=== PATIENT | male | born 1980 | race African-American/Black ===

== ENCOUNTER 2021-08-28 01:36 | Observation (INO) | payer OTHER, SELFPAY ==
[2021-08-28] MEDS ORDERED: ONDANSETRON 4 MG/2 ML VIAL ONE (02:09)
[2021-08-28] MEDS ORDERED: MORPHINE 4 MG/ML SYR ONE ×2 (02:09→06:24)
[2021-08-28 02:31] LABS: Absolute Lymphocytes (CBC) 1.9 K/uL (0.7-4.9); Hematocrit 39.2 % (39.6-49.0); Lymphocytes % 30.5 % (15.3-44.8); MPV 8.5 fL (7.6-11.3); RBC Red Blood Cell Count 5.45 M/uL (4.33-5.43)
[2021-08-28 02:43] LABS: ALT/SGPT 38 U/L (12-78); AST/SGOT 29 U/L (15-37); Albumin 2.9 g/dL (3.4-5.0); Alkaline Phosphatase 83 U/L (45-117); BUN Blood Urea Nitrogen 14 mg/dL (7-18); Bicarbonate 25 mmol/L (21-32); Bilirubin Direct < 0.1 mg/dL (0-0.2); Bilirubin Total 0.2 mg/dL (0.2-1.0); Glucose Level 97 mg/dL (74-106); Lipase 255 U/L (73-393); Protein, Total 6.7 g/dL (6.4-8.2); Sodium Level 140 mmol/L (136-145)
[2021-08-28 03:02] LABS: SARS-COV-2 RT PCR NEGATIVE (NEGATIVE)
[2021-08-28] MEDS ORDERED: MEPERIDINE HCL 50 MG/ML ONE (03:13)
[2021-08-28] MEDS ORDERED: METHYLPREDNISOLONE 125 MG INJ ONE (03:20)
[2021-08-28] MEDS ORDERED: DIPHENHYDRAMINE 50 MG/ML VIAL ONE (03:20)
[2021-08-28] MEDS ORDERED: PROMETHAZINE INJ 25 MG/ML AMP ONE (03:25)
[2021-08-28] MEDS ORDERED: PANTOPRAZOLE 40 MG INJ ONE ×2 (03:57→06:42)
[2021-08-28] MEDS ORDERED: NA CHLORIDE 0.9% 500 ML ONE (03:57)
--- NOTE | 2021-08-28 04:41 | EDPHYS ---
Physician Documentation [facility] Name: Brice Kline Age: 41 yrs Sex: Male : 1980 Arrival Date: 08/28/2021 Time: 01:39 Bed 15 Private MD: ED Physician João Jeter HPI: 08/28 01:42 This 41 yrs old Black Male presents to ER via Unassigned with complaints of Abdominal rn pain. 01:42 The patient presents with abdominal pain in the periumbilical area. in the left lower rn quadrant. Onset: The symptoms/episode began/occurred last night. The symptoms do not radiate. Associated signs and symptoms: Pertinent positives: nausea, Pertinent negatives: blood in stools, chest pain, fever, shortness of breath, testicular pain, vomiting blood. The symptoms are described as crampy, intermittent, sharp. Modifying factors: The symptoms are alleviated by nothing, the symptoms are aggravated by movement, touching the area. Severity of pain: At its worst the pain was moderate in the emergency department the pain is unchanged. The patient has not experienced similar symptoms in the past. The patient has not recently seen a physician. Patient reports mid and left lower quadrant abdominal pain that began last night shortly after dinner. Reports multiple abdominal surgeries years ago after he drank paint thinner and Clorox. Patient had feeding tube for a while. Patient has been having normal bowel movements. Denies any fever/cough/shortness of breath. Denies any vomiting.. Historical: - Allergies: 01:46 No Known Allergies; sv1 - Immunization history:: Adult Immunizations up to date. - Social history:: Smoking status: Patient reports the use of cigarette tobacco products, smokes one pack cigarettes per day. - Family history:: not pertinent. - Hospitalizations: : No recent hospitalization is reported. ROS: 01:42 Constitutional: Negative for fever, positive for chills Eyes: Negative for injury, rn pain, redness, and discharge, ENT: Negative for injury, pain, and discharge, Neck: Negative for injury, pain, and swelling, Cardiovascular: Negative for chest pain, palpitations, and edema, Respiratory: Negative for shortness of breath, cough, wheezing, and pleuritic chest pain, Abdomen/GI: Positive for abdominal pain and nausea. Back: Negative for injury and pain, : Negative for injury, bleeding, discharge, and swelling, MS/Extremity: Negative for injury and deformity, Skin: Negative for injury, rash, and discoloration, Neuro: Negative for headache, weakness, numbness, tingling, and seizure. 01:42 All other systems are negative. Exam: 01:42 Constitutional: This is a well developed, well nourished patient who is awake, alert, rn holding abdomen and appears uncomfortable Head/Face: Normocephalic, atraumatic. Eyes: Periorbital areas with no swelling, redness, or edema. Cardiovascular: Regular rate and rhythm. No pulse deficits. Respiratory: No increased work of breathing, no retractions or nasal flaring. Abdomen/GI: Soft, middle abdomen with surgical scars. No palpable hernia. No masses. Tender in periumbilical and left lower quadrant regions with guarding. Skin: Warm, dry MS/ Extremity: Pulses equal, no cyanosis. Neuro: Awake and alert, GCS 15 Vital Signs: 01:43 BP 143 / 93; Pulse 68; Resp 18; Temp 98.4; Pulse Ox 100% 0 lpm ; Weight 100.7 kg; sv1 Height 6 ft. 4 in. (193.04 cm); Pain 8/10; 04:13 BP 133 / 91; Pulse 64; Resp 16; Pulse Ox 100% 0 lpm ; Pain 8/10; sv1 01:43 Body Mass Index 27.02 (100.70 kg, 193.04 cm) sv1 MDM: 01:39 Patient medically screened. rn 03:26 ED course: Patient came back from CT scan with increased pain and had episode of bright rn red hematemesis, small amount, initially was not talking to us or telling us what was wrong and given the temporal relationship with the IV contrast given Solu-Medrol and Benadryl just in case was allergic reaction. Patient improved with medication in addition to Phenergan. Patient more comfortable when laying in bed. Awaiting CT results.. 04:32 Differential diagnosis: bowel obstruction, diverticulitis, gastritis, gastroesophageal rn reflux disease, GI Bleed, non-specific abd pain, pancreatitis, Peptic Ulcer Disease, Perf. Duodenal Ulcer, Perf. Gastric Ulcer, Peritonitis, Ureterolithiasis. Data reviewed: vital signs, nurses notes, lab test result(s), radiologic studies, CT scan, and as a result, I will admit patient. Counseling: I had a detailed discussion with the patient and/or guardian regarding: the historical points, exam findings, and any diagnostic results supporting the discharge/admit diagnosis, lab results, radiology results, the need for further work-up and treatment in the hospital. Response to treatment: the patient's symptoms have markedly improved after treatment, and as a result, I will admit patient. Admission orders: after a detailed discussion of the patient's condition and case, the admit orders are written by me. ED course: CT without acute findings. Patient improved, pain down to 4/10. Pt thinks IV contrast made him bleed. Possible that patient suffering from acid related illness with possible ulceration/UGIB. Vitals stable and patient resting. Will admit for serial H/H and GI consult given abd pain way out of proportion to CT and blood findings, and gross hematemesis. Could have has small gertrude-hoang. . 08/28 01:40 Order name: Basic Metabolic Panel rn 08/28 01:40 Order name: CBC with Diff; Complete Time: 02:53 rn 08/28 01:40 Order name: Hepatic Function; Complete Time: 02:53 rn 08/28 01:40 Order name: Lipase; Complete Time: 02:53 rn 08/28 01:40 Order name: COVID-19/FLU A+B (Document "Date of Onset" if Symptomatic); Complete Time: rn 03:40 08/28 01:40 Order name: Basic Metabolic Panel; Complete Time: 02:53 EDMS 08/28 01:40 Order name: CT Abd/Pelvis - IV Contrast Only rn 08/28 03:54 Order name: Type And Screen; Complete Time: 06:21 bb 08/28 06:07 Order name: ABO/RH no charge; Complete Time: 06:21 EDMS 08/28 01:40 Order name: IV Saline Lock; Complete Time: 02:06 rn 08/28 01:40 Order name: Labs collected and sent; Complete Time: 02:06 rn 08/28 01:40 Order name: NPO; Complete Time: 02:07 rn Administered Medications: 02:14 Drug: morphine 4 mg Route: IVP; Site: right forearm; ld1 02:43 Follow up: Response: No adverse reaction sv1 06:36 Follow up: Response: No adverse reaction; Pain is decreased sv1 02:14 Drug: Zofran (Ondansetron) 4 mg Route: IVP; Site: right forearm; ld1 02:43 Follow up: Response: No adverse reaction; Nausea is decreased sv1 06:36 Follow up: Response: No adverse reaction; Nausea is decreased sv1 03:52 Drug: SOLU-Medrol (methylPrednisoLONE) 125 mg Route: IVP; Site: right antecubital; sv1 03:52 Drug: Benadryl (diphenhydrAMINE) 25 mg Route: IVP; Site: right antecubital; sv1 06:34 Follow up: Response: No adverse reaction sv1 06:35 Follow up: Response: No adverse reaction sv1 03:52 Drug: Phenergan (promethazine) 12.5 mg Route: IVP; Site: right antecubital; sv1 06:34 Follow up: Response: No adverse reaction sv1 04:00 Drug: NS 0.9% 500 ml Route: IV; Rate: bolus; Site: right antecubital; sv1 06:36 Follow up: Response: No adverse reaction sv1 04:00 Drug: ProTONIX (pantoprazole) 8 mg/hr Route: IV; Rate: 25 ml/hr; Site: right sv1 antecubital; 04:06 Drug: Demerol (meperidine) 50 mg Route: IVP; Site: right antecubital; sv1 06:35 Follow up: Response: No adverse reaction; Pain is decreased sv1 04:06 Drug: ProTONIX (pantoprazole) 40 mg Route: IVP; Site: right antecubital; sv1 06:34 Follow up: Response: No adverse reaction sv1 06:33 Drug: morphine 4 mg Route: IVP; Site: right antecubital; sv1 06:52 Follow up: Response: No adverse reaction; Pain is decreased sv1 Disposition Summary: 08/28/21 04:39 Hospitalization Ordered Hospitalization Status: Observation rn Provider: Elio Jeter rn Condition: Stable rn Problem: new rn Symptoms: have improved rn Bed/Room Type: Standard rn Location: [facility] ER HOLD(08/28/21 07:45) iw Room Assignment: ERHOLD-(08/28/21 07:45) iw Diagnosis - Abdominal pain, unspecified rn - Hematemesis rn Forms: - Medication Reconciliation Form rn - SBAR form rn Signatures: Dispatcher [employer] EDBarbie Garcia RN RN Shandra Hernández RN RN iw João Jeter MD MD rn Dibbern, Lauren, RN RN ld1 Richard Ramon RN RN sv1 Corrections: (The following items were deleted from the chart) 04:47 04:39 rn mw 04:48 04:39 Telemetry/MedSurg (observation) rn mw 04:48 04:47 213 mw mw 04:51 04:48 mw mw 05:05 04:48 Telemetry/MedSurg (observation) mw mw 05:05 04:51 213 mw mw 05:16 05:05 mw mw 07:45 05:05 Telemetry/MedSurg (Inpatient) mw iw 07:45 05:16 213 mw iw
--- NOTE | 2021-08-28 04:41 | ER ---
Nurse's Notes [facility] Name: Brice Kline Age: 41 yrs Sex: Male : 1980 Arrival Date: 08/28/2021 Time: 01:39 Bed 15 Private MD: Diagnosis: Abdominal pain, unspecified;Hematemesis Presentation: 08/28 01:44 Chief complaint: Patient states: abd pain since 2200 08/27/2021..Nausea. Coronavirus sv1 screen: Vaccine status: Patient reports receiving the 2nd dose of the covid vaccine. Client denies travel out of the [place] in the last 14 days. Ebola Screen: No symptoms or risks identified at this time. Initial Sepsis Screen: Does the patient meet any 2 criteria? No. Patient's initial sepsis screen is negative. Risk Assessment: Do you want to hurt yourself or someone else? Patient reports no desire to harm self or others. Onset of symptoms was August 27, 2021 at 22:00. 01:44 Method Of Arrival: EMS: [facility] sv1 01:44 Acuity: ARIANNE 3 sv1 04:15 Initial Sepsis Screen: Does the patient have a suspected source of infection?. Initial sv1 Sepsis Screen: Does the patient have a suspected source of infection? No. Patient's initial sepsis screen is negative. Triage Assessment: 01:43 General: Appears distressed, uncomfortable, slender, well developed, well nourished. sv1 Pain: Complains of pain in abdomen. 01:46 General: Behavior is cooperative, anxious. sv1 Historical: - Allergies: 01:46 No Known Allergies; sv1 - Immunization history:: Adult Immunizations up to date. - Social history:: Smoking status: Patient reports the use of cigarette tobacco products, smokes one pack cigarettes per day. - Family history:: not pertinent. - Hospitalizations: : No recent hospitalization is reported. Screenin:47 Abuse screen: Denies threats or abuse. Nutritional screening: No deficits noted. sv1 Tuberculosis screening: No symptoms or risk factors identified. Fall Risk None identified. Assessment: 01:47 Reassessment: CC abd pain starting 08/27/2021 at 2200. PAIN LEVEL 8/10.. sv1 03:25 Reassessment: The patient returned from ct with contrast and increased nausea. He was sv1 medicated with solumedrol, 125, phenergan 12.5 nd benadryl 25. The patient did vomit a small amount of bloody sputum. New IV line was started. . Vital Signs: 01:43 BP 143 / 93; Pulse 68; Resp 18; Temp 98.4; Pulse Ox 100% 0 lpm ; Weight 100.7 kg; sv1 Height 6 ft. 4 in. (193.04 cm); Pain 8/10; 04:13 BP 133 / 91; Pulse 64; Resp 16; Pulse Ox 100% 0 lpm ; Pain 8/10; sv1 01:43 Body Mass Index 27.02 (100.70 kg, 193.04 cm) sv1 ED Course: 01:39 Patient arrived in ED. rn 01:39 João Jeter MD is Attending Physician. rn 01:43 Richard Ramon RN is Primary Nurse. sv1 01:43 Arm band placed on right wrist. sv1 01:46 Triage completed. sv1 01:47 Patient has correct armband on for positive identification. Placed in gown. Bed in low sv1 position. Call light in reach. Side rails up X2. 02:06 Lipase Sent. ld1 02:06 Hepatic Function Sent. ld1 02:06 CBC with Diff Sent. ld1 02:06 Basic Metabolic Panel Sent. ld1 02:06 CT Abd/Pelvis - IV Contrast Only Sent. ld1 02:07 COVID-19/FLU A+B (Document "Date of Onset" if Symptomatic) Sent. ld1 02:07 Basic Metabolic Panel Sent. ld1 03:28 CT Abd/Pelvis - IV Contrast Only In Process Unspecified. EDMS 03:50 T\\T\\S collected, blood band applied to patient. Inserted saline lock: 18 gauge in right bb upper arm, using aseptic technique. Blood collected. 04:13 Inserted saline lock: 18 gauge in right antecubital area, using aseptic technique. sv1 04:37 Elio Jeter MD is Hospitalizing Provider. rn 07:41 Pt removed his P.I.V , refused nurse to remove both P.I.V. Allowed nurse to place cb5 bandaids on P.I.V sites. 07:43 No provider procedures requiring assistance completed. cb5 Administered Medications: 02:14 Drug: morphine 4 mg Route: IVP; Site: right forearm; ld1 02:43 Follow up: Response: No adverse reaction sv1 06:36 Follow up: Response: No adverse reaction; Pain is decreased sv1 02:14 Drug: Zofran (Ondansetron) 4 mg Route: IVP; Site: right forearm; ld1 02:43 Follow up: Response: No adverse reaction; Nausea is decreased sv1 06:36 Follow up: Response: No adverse reaction; Nausea is decreased sv1 03:52 Drug: SOLU-Medrol (methylPrednisoLONE) 125 mg Route: IVP; Site: right antecubital; sv1 03:52 Drug: Benadryl (diphenhydrAMINE) 25 mg Route: IVP; Site: right antecubital; sv1 06:34 Follow up: Response: No adverse reaction sv1 06:35 Follow up: Response: No adverse reaction sv1 03:52 Drug: Phenergan (promethazine) 12.5 mg Route: IVP; Site: right antecubital; sv1 06:34 Follow up: Response: No adverse reaction sv1 04:00 Drug: NS 0.9% 500 ml Route: IV; Rate: bolus; Site: right antecubital; sv1 06:36 Follow up: Response: No adverse reaction sv1 04:00 Drug: ProTONIX (pantoprazole) 8 mg/hr Route: IV; Rate: 25 ml/hr; Site: right sv1 antecubital; 04:06 Drug: Demerol (meperidine) 50 mg Route: IVP; Site: right antecubital; sv1 06:35 Follow up: Response: No adverse reaction; Pain is decreased sv1 04:06 Drug: ProTONIX (pantoprazole) 40 mg Route: IVP; Site: right antecubital; sv1 06:34 Follow up: Response: No adverse reaction sv1 06:33 Drug: morphine 4 mg Route: IVP; Site: right antecubital; sv1 06:52 Follow up: Response: No adverse reaction; Pain is decreased sv1 Outcome: 04:39 Decision to Hospitalize by Provider. rn 07:39 AMA Other Pt refused vitals signs, stated "I want to go home, this was a waste of time, cb5 don't tell me the results are normal" Attempted to educate patient to process of testing and why, pt stated "I want to the sign the form and go home." 07:43 Discharge instructions given to patient. cb5 07:43 Condition: stable cb5 07:45 Patient left the ED. iw Signatures: Dispatcher [employer] Naomy Awan, RN RN Shandra Andrade RN RN João Hadley MD MD rn Dibbern, Lauren, RN RN ld1 Richard Ramon RN RN sv1 Sofia Drake RN RN cb5
--- NOTE | 2021-08-28 04:51 | P.HP ---
Certification for Inpatient Patient admitted to: Observation With expected LOS: <2 Midnights Patient will require the following post-hospital care: None Practitioner: I am a practitioner with admitting privileges, knowledge of patient current condition, hospital course, and medical plan of care. Services: Services provided to patient in accordance with Admission requirements found in Title 42 Section 412.3 of the Code of Federal Regulations <Ankit Guillermo Jenaro Lindquist - Last Filed: 08/28/21 04:48> Patient History Date of Service: 08/28/21 Primary Care Provider: None Reason for admission: Hematemesis History of Present Illness: 41-year-old -[place] male with history of hypertension presents emerg ency department for abdominal pain. Patient was evaluated in the emergency department labs were significant for hemoglobin 12.3 hematocrit 39.2 white blood cell count 6.2 CT abdomen pelvis no acute intra-abdominal processes noted, status post esophagectomy with anterior mediastinum neoesophagus. Patient reports that approximate 11 years ago he drank bleach/Clorox which required the surgery. Patient without any other surgical history CT does demonstrate some constipation. After having CT scan patient returned and had episode of hematemesis with small amount of bright red blood. For this reason and given patient's significant abdominal pain which has since resolved ED provider wishes to admit under observation. - Past Medical/Surgical History -: Hypertension -: Esophagectomy with neoesophagus Psychosocial/ Personal History: Patient lives at home with family - Family History Mother -: Diabetes - Social History Smoking Status: Current every day smoker Counseled patient to stop smoking for: less than 10 minutes Smoking therapy provided: No (Patient declined) Alcohol use: No CD- Drugs: Yes Caffeine use: No Place of Residence: Home <Ankit Guillermo - Last Filed: 08/28/21 04:48> Date of Service: 08/28/21 <Elio Jeter - Last Filed: 08/28/21 19:47> Review of Systems 10-point ROS is otherwise unremarkable Gastrointestinal: Nausea, Abdominal Pain <Ankit Guillermo - Last Filed: 08/28/21 04:48> Physical Examination - Physical Exam General: Alert, In no apparent distress, Oriented x3 HEENT: Atraumatic, PERRLA, Mucous membr. moist/pink, EOMI, Sclerae nonicteric Neck: Supple, 2+ carotid pulse no bruit, No LAD, Without JVD or thyroid abnormality Respiratory: Clear to auscultation bilaterally, Normal air movement Cardiovascular: Regular rate/rhythm, Normal S1 S2 Gastrointestinal: Hypoactive, Tenderness (Mild generalized abdominal tenderness) Musculoskeletal: No tenderness Integumentary: No rashes Neurological: Normal speech, Normal strength at 5/5 x4 extr, Normal tone, Normal affect Lymphatics: No axilla or inguinal lymphadenopathy - Studies Laboratory Data (last 24 hrs) 08/28/21 01:59: WBC 6.20, Hgb 12.3 L, Hct 39.2 L, Plt Count 170 08/28/21 01:59: Sodium 140, Potassium 4.0, BUN 14, Creatinine 1.15, Glucose 97, Total Bilirubin 0.2, AST 29, ALT 38, Alkaline Phosphatase 83, Lipase 255 <Ankit Guillermo - Last Filed: 08/28/21 04:48> - Studies Laboratory Data (last 24 hrs) 08/28/21 01:59: WBC 6.20, Hgb 12.3 L, Hct 39.2 L, Plt Count 170 08/28/21 01:59: Sodium 140, Potassium 4.0, BUN 14, Creatinine 1.15, Glucose 97, Total Bilirubin 0.2, AST 29, ALT 38, Alkaline Phosphatase 83, Lipase 255 <Elio Jeter - Last Filed: 08/28/21 19:47> Assessment and Plan - Plan Assessment: Abdominal pain/tenderness, hematemesis Hypertension Plan: Abdominal pain/tenderness, hematemesis: CT abdomen pelvis negative for acute findings, patient 1 episode of small amount of hematemesis after CT scan. Will monitor with serial abdominal exams, GI will be consulted patient n.p.o. at this time continue with IV fluids. If patient continues with more hematemesis we will repeat H&H. Appreciate further input from GI. Hypertension: Patient does not take any medications at home for blood pressure we will continue monitor blood pressure throughout hospitalization, may require medication at discharge. DVT PPX: SCD Code status: Full code Discharge Plan: Home Plan to discharge in: 24 Hours - Advance Directives Does patient have a Living Will: No Does patient have a Durable POA for Healthcare: No - Code Status/Comfort Care Code Status Assessed: Yes (Full code) Critical Care: No Time Spent Managing Pts Care (In Minutes): 55 <Attema,Ankit A Lexa - Last Filed: 08/28/21 04:48> - Plan Patient seen and examined on morning rounds this morning at ~7am. Reviewed lab and imaging findings with the patient. As I was explaining the results and concern for possible Nellie-Lakhani tear, the patient became very agitated and frustrated. Accused me of "bullshitting" him and "hiding something" from him. He stated he was frustrated that we have been unable to give him a definitive diagnosis by now. Despite my explaining of the limitations of CT scans, the patient was still upset He requested AMA paperwork and signed AMA. Patient pulled out his own IV and left on his own accord. Explanation of the risks for leaving at this time were explained - further bleeding, risk of Patient expressed understanding and still decided to leave AMA. <Elio Jeter - Last Filed: 08/28/21 19:47>
[2021-08-28] MEDS ORDERED: NA CHLORIDE 0.9% 250 ML ONE (06:43)
[2021-08-28 07:55] VITALS: TEMP 98.4; O2SAT 100
[2021-08-28 07:56] VITALS: BP 133/91
--- NOTE | 2021-08-28 10:52 | RAD REPORT ---
EXAM DESCRIPTION: CT - Abdomen Pelvis W Contrast - 08/28/2021 6:00 am CLINICAL HISTORY: 41 years, Male, ABD PAIN COMPARISON: None TECHNIQUE: Contrast-enhanced images of the abdomen and pelvis were performed utilizing at 5 mm slice thickness at 5 mm interval reconstruction from the lung bases to the ischial tuberosities after the administration IV contrast. In addition multiplanar reformats in the coronal and sagittal plane were obtained and reviewed. This exam was performed according to our departmental dose-optimization protocol, which includes auto mated exposure control, adjustment of the mA and/or kV according to patient size and/or use of iterat iftikhar reconstruction technique. FINDINGS: The lung bases demonstrate to be clear. Right pleural calcification. There is anterior tub ular structure corresponding to most likely a prior esophagectomy with neoesophagus anterior mediasti num correspond most likely small bowel. The lack of intraluminal fat limits the evaluation. The liver, gallbladder, pancreas, spleen and adrenal glands demonstrate to be unremarkable, no focal lesions are noted. The kidneys demonstrate normal uptake of contrast media. No evidence for nephrolithiasis and/or hydro nephrosis. There is no evidence for significant abnormalities within the gastroesophageal anastomosis within the anterior lower chest/upper abdomen. The small bowel and large bowel demonstrate to be within normal limits. Fecal residue throughout the large bowel correspond to mild constipation. The appendix wa s not visualized. The urinary bladder demonstrate to be unremarkable. The prostate gland is normal. The aorta demon strate to be normal. There is no retroperitoneal lymphadenopathy. There is no ascites. The rest of the soft tissue and bony structures are within normal limits. IMPRESSION: The lack of intra-abdominal fat limits the evaluation. No acute intra-abdominal process. Mild constipation. Status post esophagectomy with anterior mediastinum neoesophagus. Right pleural calcification. Electronically signed by: Luis M Reyes MD 08/28/2021 3:59 AM [employer] Due to temporary technical issues with the PACS/Fluency reporting system, reports are being signed by the in house radiologist without review as a courtesy to ensure prompt reporting. The interpreting r adiologist is fully responsible for the content of the report.
== END 2021-08-28 08:19 | disposition left against medical advice (07) ==
LOC: ER 01:36 → ERHOLD 04:48
PROVIDERS: ADMIT Hospitalist; ATTEND Hospitalist
DX: K92.0 Hematemesis (principal); R10.9 Unspecified abdominal pain; R10.819 Abdominal tenderness, unspecified site; Z53.29 Procedure and treatment not carried out because of patient's decision for other reasons; I10 Essential (primary) hypertension; F17.210 Nicotine dependence, cigarettes, uncomplicated; Z71.6 Tobacco abuse counseling; Z20.822 Contact with and (suspected) exposure to COVID-19; Z90.49 Acquired absence of other specified parts of digestive tract; Z83.3 Family history of diabetes mellitus
CPT/HCPCS: 0240U; 36415; 74177; 80048; 80076; 83690; 85025; 86850; 86900; 86901; 99284; C9113; G0378; J1200; J2175; J2405; J2550; J2930; J7040; J7050; Q9967